=== PATIENT | female | born 1985 | race Caucasian/White ===

== ENCOUNTER 2017-08-30 12:16 | Emergency (ER) | payer OTHER ==
[2017-08-30] MEDS ORDERED: DIPH,PERTUS(ACELL)TETVAC-LF 0.5 ML VIAL IM ONE (13:36)
--- NOTE | 2017-08-30 13:41 | ED ---
General Adult HPI - General Chief complaint: Psychiatric Symptoms Stated complaint: Mental Health Time Seen by Provider: 08/30/17 12:42 Source: patient, RN notes reviewed Mode of arrival: ambulatory Limitations: no limitations - History of Present Illness Initial comments: Patient is a 31-year-old female presented to the emergency room today with chief complaint of laceration to the left wrist. She states that she became upset this afternoon and there was a piece of glass posterior she ground and cut her left wrist. She states that she's never made an attempt for suicide in the past. She states she realizes at this time that this was a mistake. She states she came to the emergency room to to get the wound taken care of. She states she has no thoughts of hurting herself at this time. She denies any homicidal thoughts or plans. Denies any visual or auditory hallucinations. Denies any other complaints. States she is unsure of her tetanus status. - Related Data Home Medications Medication Instructions Recorded Confirmed Ibuprofen [Motrin] 400 mg PO Q6HR PRN 05/10/17 08/30/17 Allergies Allergy/AdvReac Type Severity Reaction Status Date / Time No Known Allergies Allergy Verified 08/30/17 14:40 Review of Systems ROS Statement: Those systems with pertinent positive or pertinent negative responses have been documented in the HPI. ROS Other: All systems not noted in ROS Statement are negative. Past Medical History Past Medical History: No Reported History History of Any Multi-Drug Resistant Organisms: None Reported Past Surgical History: No Surgical Hx Reported Past Psychological History: Anxiety Smoking Status: Current every day smoker Past Alcohol Use History: None Reported Past Drug Use History: Marijuana General Exam - General Exam Comments Initial Comments: General: The patient is awake and alert, in no distress, and does not appear acutely ill. Eye: Pupils are equal, round and reactive to light, extra-ocular movements are intact. No nystagmus. There is normal conjunctiva bilaterally. No signs of icterus. Ears, nose, mouth and throat: There are moist mucous membranes and no oral lesions. Neck: The neck is supple, there is no tenderness or JVD. Cardiovascular: There is a regular rate and rhythm. No murmur, rub or gallop is appreciated. Respiratory: Lungs are clear to auscultation, respirations are non-labored, breath sounds are equal. No wheezes, stridor, rales, or rhonchi. Musculoskeletal: Normal ROM, no tenderness. Strength 5/5. Sensation intact. Pulses equal bilaterally 2+. Neurological: A&O x 3. CN II-XII intact, There are no obvious motor or sensory deficits. Coordination appears grossly intact. Speech is normal. Skin: 3 cm linear laceration running horizontally to the volar aspect of the left wrist. No active bleeding. Psychiatric: Cooperative. Limitations: no limitations Course Vital Signs 08/30/17 12:35 Temperature 98.4 F Pulse Rate 86 Respiratory 18 Rate Blood Pressure 115/63 O2 Sat by Pulse 96 Oximetry Procedures - Procedures Initial comment: Laceration site to the left wrist was cleaned with saline. Wound edges were approximated and closed with Dermabond. Patient tolerated well. Medical Decision Making - Medical Decision Making Patient's lacerations are cleaned and closed emergency room. Patient declined sutures and opted for Dermabond. Patient tolerated well. Patient was seen here the emergency room by mental health. They did confirm with patient's mother that she does have a temperature. States mother will be staying with her. Her fianc is at bedside. They feel comfortable being discharged home. Patient states she has no suicidal thoughts or plans. No intentions of harming herself. She states this was a stupid mistake. She contracts for safety. Patient will be discharged to follow up outpatient. - Lab Data Lab Results 08/30/17 Range/Units 13:30 Urine Opiates Screen Not Detected (NotDetected) Ur Oxycodone Screen Not Detected (NotDetected) Urine Methadone Screen Not Detected (NotDetected) Ur Propoxyphene Screen Not Detected (NotDetected) Ur Barbiturates Screen Not Detected (NotDetected) U Tricyclic Antidepress Not Detected (NotDetected) Ur Phencyclidine Scrn Not Detected (NotDetected) Ur Amphetamines Screen Not Detected (NotDetected) U Methamphetamines Scrn Not Detected (NotDetected) U Benzodiazepines Scrn Not Detected (NotDetected) Urine Cocaine Screen Not Detected (NotDetected) U Marijuana (THC) Screen Detected H (NotDetected) Disposition Clinical Impression: Agitation states as acute reaction to exceptional (gross) stress, Laceration Disposition: HOME SELF-CARE Condition: Stable Instructions: Laceration (ED) Additional Instructions: Please follow-up outpatient therapist as discussed in the emergency room. Please allow the glue to follow up on its own over the next 3-5 days. Please watch for any signs of infection which may include increased pain, swelling, redness, fever or chills. Please return to emergency room for any signs of infection or any other concerns. Referrals: None,Stated [Primary Care Provider] - 1-2 days Time of Disposition: 14:51
[2017-08-30] MEDS ORDERED: TOPICAL SKIN ADHESIVE 1 EACH AMP TOPICAL ONE (14:04)
[2017-08-30 14:12] LABS: Amphetamine Screen,Urine Not Detected (NotDetected); Barbiturate Screen,Urine Not Detected (NotDetected); Benzodiazepines Screen,Urine Not Detected (NotDetected); Cocaine Screen,Urine Not Detected (NotDetected); Methadone Screen, Urine Not Detected (NotDetected); Opiate Screen,Urine Not Detected (NotDetected); Oxycodone Screen, Urine Not Detected (NotDetected); Phencyclidine Screen,Urine Not Detected (NotDetected); Tricyclic Antidepressant,Urine Not Detected (NotDetected); Urn Cannabinoid Scrn Detected (NotDetected)
[2017-08-30 15:09] VITALS: BP 112/65; PULSE 78; RESP 20; TEMP 98
== END 2017-08-30 15:09 | disposition home or self-care (01) ==
LOC: EC 12:16
DX: S61.511A Laceration without foreign body of right wrist, initial encounter (principal); F43.0 Acute stress reaction; R45.1 Restlessness and agitation; F17.200 Nicotine dependence, unspecified, uncomplicated; Z23 Encounter for immunization; X78.0XXA Intentional self-harm by sharp glass, initial encounter; Y92.009 Unspecified place in unspecified non-institutional (private) residence as the place of occurrence of the external cause
CPT/HCPCS: 12002; 80306; 82075; 90471; 90715; 99284

== ENCOUNTER 2017-12-04 13:01 | Emergency (ER) | payer OTHER ==
[2017-12-04 13:07] VITALS: BP 140/82; PULSE 84; RESP 18; TEMP 98.3
--- NOTE | 2017-12-04 13:24 | ED ---
General Adult HPI - General Chief complaint: Urogenital Stated complaint: female Time Seen by Provider: 12/04/17 13:08 Source: patient, RN notes reviewed, old records reviewed Mode of arrival: ambulatory Limitations: no limitations - History of Present Illness Initial comments: Patient 32-year-old female who presents emergency room today with a chief complaint of vaginal discharge in order over the last 4 days. Patient states that she had similar symptoms back in April 2017 and she was diagnosed with bacterial vaginosis. Patient states his symptoms symptoms. She states that started 4 days ago. She does admit that she seemed some bleeding that started after intercourse 4 days ago as well. Patient states that the bleeding has decreased no bleeding this morning. She does admit to some itching sensation at times. Patient states these are the same symptoms that she experienced before. She states she is confident that she does not have STD. Patient denies any recent fever, chills, shortness of breath, chest pain, back pain, abdominal pain, nausea or vomiting, numbness or tingling, constipation or diarrhea, headaches or visual changes, or any other complaints. - Related Data Previous Rx's Medication Instructions Recorded metroNIDAZOLE [Flagyl] 500 mg PO BID #14 tab 12/04/17 Allergies Allergy/AdvReac Type Severity Reaction Status Date / Time No Known Allergies Allergy Verified 12/04/17 13:29 Review of Systems ROS Statement: Those systems with pertinent positive or pertinent negative responses have been documented in the HPI. ROS Other: All systems not noted in ROS Statement are negative. Past Medical History Past Medical History: No Reported History History of Any Multi-Drug Resistant Organisms: None Reported Past Surgical History: No Surgical Hx Reported Past Psychological History: Anxiety Smoking Status: Current every day smoker Past Alcohol Use History: None Reported Past Drug Use History: Marijuana General Exam - General Exam Comments Initial Comments: General: The patient is awake and alert, in no distress, and does not appear acutely ill. Eye: extra-ocular movements are intact. No nystagmus. There is normal conjunctiva bilaterally. No signs of icterus. Ears, nose, mouth and throat: There are moist mucous membranes and no oral lesions. Neck: The neck is supple, there is no tenderness or JVD. Gastrointestinal: Soft on palpation. No specific tenderness. Musculoskeletal: Normal ROM, no tenderness. Sensation intact. Neurological: A&O x 3. CN II-XII intact, There are no obvious motor or sensory deficits. Coordination appears grossly intact. Speech is normal. Skin: Skin is warm and dry and no rashes or lesions are noted. Psychiatric: Cooperative, appropriate mood & affect, normal judgment. Limitations: no limitations Course Vital Signs 12/04/17 13:04 Temperature 98.3 F Pulse Rate 84 Respiratory 18 Rate Blood Pressure 140/82 O2 Sat by Pulse 98 Oximetry Medical Decision Making - Medical Decision Making Patient states that she is not worried about any STDs. She states That she does not have them. States his symptoms are consistent with bacterial vaginosis that she's had in the past. She declined any STD testing or pelvic exam. Urinalysis reviewed and is negative for any sign of infection. Cultures pending. Patient will be treated for bacterial vaginosis placed on Flagyl. She is advised follow-up with [facility]. She is advised return if any symptoms increase worsen. - Lab Data Lab Results 12/04/17 12/04/17 Range/Units 13:10 13:10 Urine Color Yellow Urine Appearance Cloudy H (Clear) Urine pH 6.0 (5.0-8.0) Ur Specific [place] 1.020 (1.001-1.035) Urine Protein 1+ H (Negative) Urine Glucose (UA) Negative (Negative) Urine Ketones Trace H (Negative) Urine Blood Negative (Negative) Urine Nitrite Negative (Negative) Urine Bilirubin Negative (Negative) Urine Urobilinogen 2.0 (<2.0) mg/dL Ur Leukocyte Esterase Moderate H (Negative) Urine RBC 4 (0-5) /hpf Urine WBC 2 (0-5) /hpf Ur Squamous Epith Cells 25 H (0-4) /hpf Urine Mucus Many H (None) /hpf Urine HCG, Qual Not Detected (Not Detectd) Disposition Clinical Impression: Bacterial vaginosis Disposition: HOME SELF-CARE Condition: Good Instructions: Bacterial Vaginosis (ED) Additional Instructions: Please follow-up with [facility] as discussed. Please use antibiotic as prescribed that has been sent to pharmacy. Please return to emergency room if any symptoms increase or worsen or for any other concerns. Prescriptions: metroNIDAZOLE [Flagyl] 500 mg PO BID #14 tab Is patient prescribed a controlled substance at d/c from ED?: No Referrals: None,Stated [Primary Care Provider] - 1-2 days Chin Rankin DO [Doctor of Osteopathic Medicine] - 1-2 days Time of Disposition: 13:44
[2017-12-04 13:37] LABS: Appearance,Urine Cloudy (Clear); Bilirubin,Urine Negative (Negative); Blood,Urine Negative (Negative); Color,Urine Yellow; Glucose,Urine (UA) Negative (Negative); Ketones,Urine Trace (Negative); Leukocyte Esterase,Urine Moderate (Negative); Mucus,Urine Many /hpf; Nitrite,Urine Negative (Negative); Protein,Urine 1+ (Negative); RBC,Urine 4 /hpf (0-5); Squamous Epithelial Cell,Urine 25 /hpf (0-4); WBC,Urine 2 /hpf (0-5)
== END 2017-12-04 13:55 | disposition home or self-care (01) ==
LOC: EC 13:01
DX: N76.0 Acute vaginitis (principal); F17.200 Nicotine dependence, unspecified, uncomplicated
CPT/HCPCS: 81001; 81025; 87086; 99284

== ENCOUNTER 2019-06-22 18:09 | Emergency (ER) | payer OTHER ==
[2019-06-22] MEDS ORDERED: PENICILLIN VK 500MG STARTER 4 TAB BTL PO STA (19:06)
[2019-06-22] MEDS ORDERED: ACET/COD 300 MG/30 MG STARTER PACK 6 TAB BTL PO STA (19:06)
[2019-06-22] MEDS ORDERED: HYDROcodone/APAP 7.5-325MG 1 EACH TAB PO ONE (19:06)
--- NOTE | 2019-06-22 19:09 | ED ---
ENT HPI - General Chief complaint: Dental/Oral Stated complaint: dental pain Time Seen by Provider: 06/22/19 19:00 Source: patient, RN notes reviewed Mode of arrival: ambulatory Limitations: no limitations - History of Present Illness Initial comments: This a 33-year-old female presents emergency Department with chief complaint of left-sided dental pain. Patient states that she's had ongoing issues. States her last few days she's had increase in swelling, pain left lower. No fevers or chills she has no trismus did not follow-up with dentist at this time. Patient denies any known drug ALLERGIES. Patient states that she is taking ibuprofen with minimal relief. - Related Data Previous Rx's Medication Instructions Recorded metroNIDAZOLE [Flagyl] 500 mg PO BID #14 tab 12/04/17 Ibuprofen [Motrin] 600 mg PO Q8HR PRN #30 tab 06/22/19 Penicillin V Potassium [Pen Vee K] 500 mg PO QID #40 tablet 06/22/19 Allergies Allergy/AdvReac Type Severity Reaction Status Date / Time No Known Allergies Allergy Verified 06/22/19 18:51 Review of Systems ROS Statement: Those systems with pertinent positive or pertinent negative responses have been documented in the HPI. ROS Other: All systems not noted in ROS Statement are negative. Past Medical History Past Medical History: No Reported History History of Any Multi-Drug Resistant Organisms: None Reported Past Surgical History: No Surgical Hx Reported Past Psychological History: Anxiety Smoking Status: Current every day smoker Past Alcohol Use History: None Reported Past Drug Use History: Marijuana General Exam Limitations: no limitations General appearance: alert, in no apparent distress Head exam: Present: atraumatic, normocephalic, normal inspection Eye exam: Present: normal appearance, PERRL, EOMI. Absent: scleral icterus, conjunctival injection, periorbital swelling ENT exam: Present: mucous membranes moist, TM's normal bilaterally, normal external ear exam, other (No trismus). Absent: normal exam, normal oropharynx (Multiple dental caries, dental fracture and severe erosion left lower no drainable abscess.) Neck exam: Present: normal inspection, full ROM. Absent: tenderness, meningismus, lymphadenopathy Respiratory exam: Present: normal lung sounds bilaterally. Absent: respiratory distress, wheezes, rales, rhonchi, stridor Cardiovascular Exam: Present: regular rate, normal rhythm, normal heart sounds. Absent: systolic murmur, diastolic murmur, rubs, gallop, clicks Course Vital Signs 06/22/19 18:48 Temperature 98.4 F Pulse Rate 71 Respiratory 16 Rate Blood Pressure 113/66 O2 Sat by Pulse 100 Oximetry Medical Decision Making - Medical Decision Making Patient has no visible abscess though concern for underlying dental infection, underlying dental abscess. Patient was placed on antibiotics given initial dose in the emergency department. Patient be discharged this time advised to follow- up with a dentist or dental clinic. Disposition Clinical Impression: Dental caries, Dental infection, Toothache Disposition: HOME SELF-CARE Condition: Stable Instructions (If sedation given, give patient instructions): Dental Abscess (ED) Additional Instructions: Please return to the Emergency Department if symptoms worsen or any other concerns. Please follow-up with dentist or follow up with the [facility] clinic. [facility] [place] [address]. Phone number for new patients or [phone] for existing patients. Prescriptions: Ibuprofen [Motrin] 600 mg PO Q8HR PRN #30 tab PRN Reason: Pain Penicillin V Potassium [Pen Vee K] 500 mg PO QID #40 tablet Is patient prescribed a controlled substance at d/c from ED?: No Referrals: None,Stated [Primary Care Provider] - 1-2 days Time of Disposition: 19:09
[2019-06-22 19:41] VITALS: BP 119/71; PULSE 69; RESP 18; TEMP 98.1
== END 2019-06-22 19:39 | disposition home or self-care (01) ==
LOC: EC 18:09
DX: K04.7 Periapical abscess without sinus (principal); K02.9 Dental caries, unspecified; S02.5XXA Fracture of tooth (traumatic), initial encounter for closed fracture; F17.200 Nicotine dependence, unspecified, uncomplicated; X58.XXXA Exposure to other specified factors, initial encounter
CPT/HCPCS: 99283